=== PATIENT | male | born 1980 | race Caucasian/White ===

== ENCOUNTER 2023-03-18 17:43 | Inpatient (IN) ==
--- NOTE | 2023-03-18 18:26 | Emergency Department Note ---
ED Provider Note History of Present Illness Chief Complaint: Abdominal Pain Stated Complaint: ABDOMINAL PAIN,WEAK Time Seen by Provider: 03/18/23 17:50 Source: patient Mode of arrival: ambulatory Limitations: no limitations This patient is a 43-year-old male who presents to the emergency department for evaluation of lower abdominal discomfort x3 days. Patient reports that he has a pain/discomfort across his lower abdomen which has been constant over the past 3 days. He states it feels like gas, but having a bowel movement or passing gas does not relieve the pain. He has tried taking Gas-X without relief. He feels like it is slightly difficult to urinate and he has been having decreased bowel movements. He denies any nausea/vomiting, diarrhea, blood in his stools or fever/chills. He denies any history of similar symptoms. He was seen at urgent care and referred here for further evaluation. Home Medications Medication Instructions Recorded Confirmed Type buspirone 5 mg tablet 5 - 10 mg PO DAILY PRN Anxiety 05/04/20 03/18/23 History acetaminophen 325 mg tablet 1,300 mg PO TID PRN Pain 03/18/23 03/18/23 History (Tylenol) calcium carbonate 500 mg calcium 500 mg PO TID PRN Gi Upset 03/18/23 03/18/23 History (1,250 mg) chewable tablet gabapentin 300 mg capsule 300 mg PO TID 03/18/23 03/18/23 History ibuprofen 200 mg tablet (Advil) 800 mg PO DAILY PRN Pain 03/18/23 03/18/23 History Allergies Allergy/AdvReac Type Severity Reaction Status Date / Time No Known Allergies Allergy Unknown NONE Verified 03/18/23 22:05 Past Med/Surg History Medical History (Updated 03/18/23 @ 23:21 by Destiny Larry PA-C) Alcoholism /alcohol abuse will be planning rehab after colonoscopy Anxiety Hemorrhoids Surgical History H/O removal of neck cyst Hx of reduction of closed fracture right Family History Other Cancer Social History Smoking Status: Current every day smoker Tobacco Type: Cigarettes Cigarettes Per Day: 2ppd; Second Hand Exposure: No; Do You Dip or Chew Tobacco: No; Hx Alcohol Use: Yes Alcohol type: beer Hx Substance Use: Yes Preferred Language: Iranian Communication Ability: Effective Test Case Developer Required: No Beliefs That Will Affect Care: None marital status: Single Current Living Situation: Other current occupational status: employed Feels Safe at Home: Yes Physical Exam Vital Signs Vital Signs - 24 hr 03/18/23 17:45 03/18/23 18:41 03/18/23 18:41 Temperature 36.8 C Temperature Source Oral Pulse Rate 105 H Pulse Rate [Right Finger] 95 H Pulse Rhythm Regular Respiratory Rate 20 20 Respiratory Effort / Characteristics Non-Labored Spontaneous Non-Labored Respiratory Depth Normal Normal Respiratory Pattern Blood Pressure 132/93 Blood Pressure [Right Arm] 140/86 Blood Pressure Mean 106 Blood Pressure Mean [Right Arm] 104 Pulse Oximetry 97 98 98 Oxygen Delivery Method Room Air Room Air Room Air Sepsis Recent Fever Within 48 Hours No Sepsis New/Unexplained Change in Mental Status No Sepsis Action Taken by Nursing No Action Required 03/18/23 19:54 03/18/23 21:18 Temperature Temperature Source Pulse Rate Pulse Rate [Right Finger] 92 H 96 H Pulse Rhythm Respiratory Rate 18 18 Respiratory Effort / Characteristics Non-Labored Spontaneous Non-Labored Spontaneous Respiratory Depth Normal Normal Respiratory Pattern Regular Blood Pressure Blood Pressure [Right Arm] 143/86 H 129/81 Blood Pressure Mean Blood Pressure Mean [Right Arm] 105 97 Pulse Oximetry 98 96 Oxygen Delivery Method Room Air Room Air Sepsis Recent Fever Within 48 Hours Sepsis New/Unexplained Change in Mental Status Sepsis Action Taken by Nursing VITALS: Vitals are noted on the nurse's note and reviewed by myself. GENERAL: This is a 43-year-old male, in no acute distress, well-developed well- nourished. SKIN: The skin was without rashes. EYES: Pupils equal round and reactive to light and accommodation. MOUTH: Mucous membranes moist. HEART: Regular rate and rhythm without murmurs gallops or rubs. LUNGS: Clear to auscultation bilaterally without wheezes, rales or rhonchi. ABDOMEN: Positive bowel sounds x 4. Umbilical hernia is noted, nonreducible but nontender. No skin changes. There is tenderness with guarding in the left low er quadrant. NEURO: Patient was alert and oriented to person place and time. Course Consultations Consultation #1: Gennaro Knight PA-C - general surgery Consultation #2: Dr. Aragon - [facility] hospitalist Administered Medications Discontinued Medications Piperacillin Sod/Tazobactam Sod (Zosyn) 4.5 gm in 120 mls @ 240 mls/hr IV NOW ONE Stop: 03/18/23 20:49 Last Infusion: 03/18/23 21:43 Dose: 0 mls/hr Documented By: Admin: 03/18/23 21:13 Dose: 240 mls/hr Documented By: BS Sodium Chloride (Nss 1000ml) 1,000 mls @ 999 mls/hr IV .Q1H1M ONE Stop: 03/18/23 21:20 Last Infusion: 03/18/23 22:23 Dose: 0 mls/hr Documented By: Admin: 03/18/23 21:14 Dose: 999 mls/hr Documented By: MARQUEZ Ioversol (Optiray 320 100ml) 80 ml IV ONCE ONE Stop: 03/18/23 20:02 Last Admin: 03/18/23 20:02 Dose: 80 ml Documented By: DAVID Morphine Sulfate (Morphine Sulfate 4 Mg/Ml 1 Ml Carp\Vial) 4 mg IV NOW STA Stop: 03/18/23 21:04 Last Admin: 03/18/23 21:14 Dose: 4 mg Documented By: MARQUEZ Ondansetron HCl (Ondansetron Inj 2 Mg/Ml 2 Ml Vial) 4 mg IV NOW STA Stop: 03/18/23 21:04 Last Admin: 03/18/23 21:14 Dose: 4 mg Documented By: MARQUEZ Medical Decision Making Differential Diagnosis Appendicitis, testicular torsion, infections, diverticulitis, UTI, obstruction, mesenteric ischemia, aortic pathology, inflammatory bowel disease, renal colic, PUD, pancreatitis, biliary pathology, hernia, volvulus, constipation, as well as other pathologies. Home Medications was personally reviewed by me Laboratory Data Attestation: I reviewed the patient's lab results. 03/18/23 18:43 03/18/23 18:43 Lab Results 03/18/23 03/18/23 03/18/23 Range/Units 18:43 18:43 21:00 WBC 16.59 H (4.8-10.8) K/ul RBC 4.89 (4.70-6.10) M/uL Hgb 14.8 (14.0-18.0) g/dl Hct 42.5 (42.0-52.0) % MCV 86.9 (80.0-100.0) fL MCH 30.3 (25.0-34.0) pg MCHC 34.8 (32.0-36.0) g/dL RDW Std Deviation 41.2 (36.4-46.3) fL RDW Coeff of Krystyna 13.1 (11.5-14.5) % Plt Count 255 (130-400) K/uL MPV 10.1 (9.4-12.4) fL Immature Gran % (Auto) 0.5 % Neut % (Auto) 81.0 % Lymph % (Auto) 9.9 % [place] % (Auto) 8.0 % Eos % (Auto) 0.3 % Baso % (Auto) 0.3 % Neut # (Auto) 13.43 H (1.40-6.50) K/uL Lymph # (Auto) 1.64 (1.2-3.4) K/uL [place] # (Auto) 1.33 H (0.11-0.59) K/uL Eos # (Auto) 0.05 (0-0.50) K/uL Baso # (Auto) 0.05 (0-0.2) K/uL Immature Gran # (Auto) 0.09 (0.01-0.20) K/uL Sodium 136 (136-145) mmol/L Potassium 4.1 (3.5-5.1) mmol/L Chloride 101 (98-107) mmol/L Carbon Dioxide 27 (21-32) mmol/L Anion Gap 8 (3-11) BUN 9 (6-23) mg/dl Creatinine 0.77 (0.6-1.4) mg/dl Est Cr Clr Drug Dosing 137.6 ml/min Est GFR ( Amer) 127.0 ml/min Est GFR (Non-Af Amer) 109.6 ml/min BUN/Creatinine Ratio 11.7 (10-20) Glucose 97 (70-99(Fasting)) mg/dl Calcium 8.6 (8.6-10.3) mg/dl Total Bilirubin 0.5 (0.2-1.0) mg/dl AST 14 (13-39) U/L ALT 17 (7-52) U/L Alkaline Phosphatase 70 (34-104) U/L Total Protein 6.9 (6.0-8.3) gm/dl Albumin 3.8 (3.4-5.0) gm/dl Globulin 3.1 (2.5-4.0) gm/dl Albumin/Globulin Ratio 1.2 (0.9-2) Lipase 13 (11-82) U/L Urine Color Yellow Urine Appearance Clear (Clear) Urine pH 6.0 (4.5-7.5) Ur Specific [place] > 1.045 H (1.000-1.030) Urine Protein Trace H (Negative) Urine Glucose (UA) Negative (Negative) Urine Ketones 3+ H (Negative) Urine Blood Negative (Negative) Urine Nitrite Negative (Negative) Urine Bilirubin Negative (Negative) Urine Urobilinogen Negative (Negative) Ur Leukocyte Esterase Negative (Negative) Urine WBC (Auto) 0 (0-5) /hpf Urine RBC (Auto) 0-4 (0-4) /hpf U Hyaline Cast (Auto) 0 (0-5) /lpf U Epithel Cells (Auto) 5-10 H (0-5) /lpf Urine Bacteria (Auto) Negative (Negative) SARS-CoV-2, RNA, NAAT (NEGATIVE) 03/18/23 Range/Units Unknown WBC (4.8-10.8) K/ul RBC (4.70-6.10) M/uL Hgb (14.0-18.0) g/dl Hct (42.0-52.0) % MCV (80.0-100.0) fL MCH (25.0-34.0) pg MCHC (32.0-36.0) g/dL RDW Std Deviation (36.4-46.3) fL RDW Coeff of Krystyna (11.5-14.5) % Plt Count (130-400) K/uL MPV (9.4-12.4) fL Immature Gran % (Auto) % Neut % (Auto) % Lymph % (Auto) % [place] % (Auto) % Eos % (Auto) % Baso % (Auto) % Neut # (Auto) (1.40-6.50) K/uL Lymph # (Auto) (1.2-3.4) K/uL [place] # (Auto) (0.11-0.59) K/uL Eos # (Auto) (0-0.50) K/uL Baso # (Auto) (0-0.2) K/uL Immature Gran # (Auto) (0.01-0.20) K/uL Sodium (136-145) mmol/L Potassium (3.5-5.1) mmol/L Chloride (98-107) mmol/L Carbon Dioxide (21-32) mmol/L Anion Gap (3-11) BUN (6-23) mg/dl Creatinine (0.6-1.4) mg/dl Est Cr Clr Drug Dosing ml/min Est GFR ( Amer) ml/min Est GFR (Non-Af Amer) ml/min BUN/Creatinine Ratio (10-20) Glucose (70-99(Fasting)) mg/dl Calcium (8.6-10.3) mg/dl Total Bilirubin (0.2-1.0) mg/dl AST (13-39) U/L ALT (7-52) U/L Alkaline Phosphatase (34-104) U/L Total Protein (6.0-8.3) gm/dl Albumin (3.4-5.0) gm/dl Globulin (2.5-4.0) gm/dl Albumin/Globulin Ratio (0.9-2) Lipase (11-82) U/L Urine Color Urine Appearance (Clear) Urine pH (4.5-7.5) Ur Specific [place] (1.000-1.030) Urine Protein (Negative) Urine Glucose (UA) (Negative) Urine Ketones (Negative) Urine Blood (Negative) Urine Nitrite (Negative) Urine Bilirubin (Negative) Urine Urobilinogen (Negative) Ur Leukocyte Esterase (Negative) Urine WBC (Auto) (0-5) /hpf Urine RBC (Auto) (0-4) /hpf U Hyaline Cast (Auto) (0-5) /lpf U Epithel Cells (Auto) (0-5) /lpf Urine Bacteria (Auto) (Negative) SARS-CoV-2, RNA, NAAT NEGATIVE (NEGATIVE) Imaging Data Attestation: I personally reviewed and interpreted this imaging study as follows: Radiologist's Impression: Abdomen/Pelvis CT 03/18/23 18:06 Exam(s): CT ABDOMEN + PELVIS With Contrast EXAM: CT Abdomen and Pelvis With Intravenous Contrast CLINICAL HISTORY: Reason for exam: lower abdominal pain. TECHNIQUE: Axial computed tomography images of the abdomen and pelvis with intravenous contrast. CTDI is 23.79 mGy and DLP is 1179.99 mGy-cm. Automated exposure control was utilized for the study. A dose lowering technique was utilized adhering to the principles of ALARA. CONTRAST: IV contrast COMPARISON: No relevant prior studies available. FINDINGS: Lung bases: Unremarkable. No mass. No consolidation. ABDOMEN: Liver: Unremarkable. No mass. Gallbladder and bile ducts: Unremarkable. No calcified stones. No ductal dilation. Pancreas: Unremarkable. No mass. No ductal dilation. Spleen: Unremarkable. No splenomegaly. Adrenals: Unremarkable. No mass. Kidneys and ureters: Unremarkable. No solid mass. No hydronephrosis. Stomach and bowel: Sigmoid diverticulitis there is a 1.9 x 1 cm area of hypodensity in the left lower abdomen adjacent to the above-mentioned inflammatory changes consistent with a small diverticular abscess. No obstruction. PELVIS: Appendix: No findings to suggest acute appendicitis. Bladder: Unremarkable. No mass. Reproductive: Unremarkable as visualized. ABDOMEN and PELVIS: Intraperitoneal space: Unremarkable. No free air. No significant fluid collection. Bones/joints: No acute fracture. No dislocation. Soft tissues: Unremarkable. Vasculature: Unremarkable. No abdominal aortic aneurysm. Lymph nodes: Unremarkable. No enlarged lymph nodes. IMPRESSION: Sigmoid diverticulitis with a 1.9 cm diverticular abscess. Electronically signed by: Aniket Bender MD 03/18/23 20:17 PM MDM Narrative Continuous air sampling and monitoring: Order was placed for continuous air sampling and monitoring. Patient was placed on the air sampling and monitoring. Patient was noted to be in normal sinus rhythm at an initial rate of 90 bpm. The patient is a 43-year-old male who presents today complaining of lower abdominal pain. Patient has tenderness with guarding in the left lower quadrant. The above work-up was performed. Labs revealed a leukocytosis of 16,000. Kidney function within normal limits. There were no concerning electrolyte abnormalities noted. CT scan of the abdomen/pelvis was performed and reviewed by radiology as above. Patient was found to have diverticulitis with associated abscess. He was given Zosyn and IV fluids. He received morphine for pain and Zofran for nausea. This was discussed with general surgery who evaluated the patient. They recommended admission to medicine. [facility] the patient for further care. Impression Diverticulitis of intestine with abscess Discharge Plan Visit Data Chief Complaint: Abdominal Pain Stated Complaint: ABDOMINAL PAIN,WEAK ED Provider: Christian Ricci ED Midlevel Provider: Destiny Larry Discharge Problem: Diverticulitis of intestine with abscess Forms Stand Alone Forms: [employer] [facility] [employer] Prescriptions Prescriptions: No Action buspirone 5 mg tablet 5 - 10 mg PO DAILY PRN (Reason: Anxiety) gabapentin 300 mg capsule 300 mg PO TID acetaminophen [Tylenol] 325 mg Tablet 1,300 mg PO TID PRN (Reason: Pain) ibuprofen [Advil] 200 mg Tablet 800 mg PO DAILY PRN (Reason: Pain) calcium carbonate [Tums 500] 500 mg calcium (1,250 mg) Tablet,Chewable 500 mg PO TID PRN (Reason: Gi Upset) Referrals Referrals: Kojo Dubois PA-C [Primary Care Provider] -
[2023-03-18 18:57] LABS: Basophils # (auto) 0.05 K/uL (0-0.2); Basophils % (auto) 0.3 %; Eosinophils # (auto) 0.05 K/uL (0-0.50); Eosinophils % (auto) 0.3 %; Hematocrit (blood only) 42.5 % (42.0-52.0); Hemoglobin 14.8 g/dl (14.0-18.0); Immature Granulocytes # (auto) 0.09 K/uL (0.01-0.20); Immature Granulocytes % (auto) 0.5 %; Lymphocytes # (auto) 1.64 K/uL (1.2-3.4); Lymphocytes % (auto) 9.9 %; Mean Corpuscular Hemoglobin 30.3 pg (25.0-34.0); Mean Corpuscular Hgb Conc 34.8 g/dL (32.0-36.0); Mean Corpuscular Volume 86.9 fL (80.0-100.0); Mean Platelet Volume 10.1 fL (9.4-12.4); Monocytes # (auto) 1.33 K/uL (0.11-0.59); Neutrophils # (auto) 13.43 K/uL (1.40-6.50); Platelet Count 255 K/uL (130-400); RDW Coefficient of Variation 13.1 % (11.5-14.5); RDW Standard Deviation 41.2 fL (36.4-46.3); Red Blood Count 4.89 M/uL (4.70-6.10); White Blood Count 16.59 K/ul (4.8-10.8)
[2023-03-18 19:18] LABS: Albumin Globulin Ratio 1.2 (0.9-2); Albumin Level 3.8 gm/dl (3.4-5.0); BUN Creatinine Ratio 11.7 (10-20); Bilirubin,Total 0.5 mg/dl (0.2-1.0); Calcium 8.6 mg/dl (8.6-10.3); Creatinine Clr Calc Pharmacy 137.6 ml/min; Est GFR (Non-African American) 109.6 ml/min; Globulin 3.1 gm/dl (2.5-4.0); Potassium 4.1 mmol/L (3.5-5.1); Total Protein 6.9 gm/dl (6.0-8.3)
[2023-03-18] MEDS ORDERED: OPTIRAY 320 100ml IV ONE (20:01)
--- NOTE | 2023-03-18 20:18 | CT Scan Report ---
Exam(s): CT ABDOMEN + PELVIS With Contrast EXAM: CT Abdomen and Pelvis With Intravenous Contrast CLINICAL HISTORY: Reason for exam: lower abdominal pain. TECHNIQUE: Axial computed tomography images of the abdomen and pelvis with intravenous contrast. CTDI is 23.79 mGy and DLP is 1179.99 mGy-cm. Automated exposure control was utilized for the study. A dose lowering technique was utilized adhering to the principles of ALARA. CONTRAST: IV contrast COMPARISON: No relevant prior studies available. FINDINGS: Lung bases: Unremarkable. No mass. No consolidation. ABDOMEN: Liver: Unremarkable. No mass. Gallbladder and bile ducts: Unremarkable. No calcified stones. No ductal dilation. Pancreas: Unremarkable. No mass. No ductal dilation. Spleen: Unremarkable. No splenomegaly. Adrenals: Unremarkable. No mass. Kidneys and ureters: Unremarkable. No solid mass. No hydronephrosis. Stomach and bowel: Sigmoid diverticulitis there is a 1.9 x 1 cm area of hypodensity in the left lower abdomen adjacent to the above-mentioned inflammatory changes consistent with a small diverticular abscess. No obstruction. PELVIS: Appendix: No findings to suggest acute appendicitis. Bladder: Unremarkable. No mass. Reproductive: Unremarkable as visualized. ABDOMEN and PELVIS: Intraperitoneal space: Unremarkable. No free air. No significant fluid collection. Bones/joints: No acute fracture. No dislocation. Soft tissues: Unremarkable. Vasculature: Unremarkable. No abdominal aortic aneurysm. Lymph nodes: Unremarkable. No enlarged lymph nodes. IMPRESSION: Sigmoid diverticulitis with a 1.9 cm diverticular abscess. Electronically signed by: Aniket Bender MD 03/18/23 20:17 PM
[2023-03-18] MEDS ORDERED: PIPERACILLIN/TAZOBACTAM 4.5 GM/120 ML BAG IV ONE (20:20)
[2023-03-18] MEDS ORDERED: SODIUM CHLORIDE 0.9% 1000ML 1,000 ML IV ONE (20:20)
[2023-03-18] MEDS ORDERED: MoRPHine SULFATE 4 MG/ML 1 ML CARP\\VIAL IV STA (21:03)
[2023-03-18] MEDS ORDERED: ONDANSETRON INJ 2 MG/ML 2 ML VIAL IV STA (21:03)
--- NOTE | 2023-03-18 21:34 | Surgery Consultation ---
Date of Consultation March 18, 2023 Assessment & Plan (1) Diverticulitis: I discussed with the treating provider in the emergency department and the patient is going to be admitted on the hospitalist service. We recommend proceeding as follows: Provide analgesics Provide antiemetics Implement n.p.o. status Provide IV fluid for hydration Initiate broad-spectrum antibiotics. The patient has received his first dose of Zosyn in the emergency department Follow serial labs I discussed in detail with the patient the disease process. I discussed with him the rationale for conservative management as described above to which he is agreeable. I did discuss with the patient that our goal will be to avoid emergency surgery as this would likely necessitate a colostomy. I did discuss with the patient that consideration will be given to advancing his diet beginning with clear liquids when he has improvement of his abdominal exam, laboratory studies, and return of normal bowel function. I did discuss with the patient that it is possible that he could clinically deteriorate necessitating an emergency operation. If the patient does show signs of clinical deterioration consideration can be given to repeating a CT scan of his abdomen pelvis. As noted the patient does have a small diverticular abscess but I feel this is too small to 10 percutaneous drainage at this time. Additional recommendations be forthcoming based on his clinical course as unfolds Additional plan as directed by the primary admitting service History of Present Illness Reason for Consultation: Diverticulitis History of Present Illness This is a 43-year-old male who presented to [facility] emergency department secondary to 2 days of lower abdominal pain. The patient notes that the pain is greatest in the left lower quadrant but does cross his lower abdomen in a bandlike fashion. He notes that the pain comes and goes without palliative or provocative factors. He denies any nausea or vomiting. He is noted to be afebrile but he did admit to some sweats and chills. He notes that his last bowel movement was today and was normal. He specifically denies any bright blood per rectum, hematochezia, or melena. Patient says he has never had diverticulitis in the past and has had no prior abdominal surgeries. The patient's records were reviewed and the patient did have a colonoscopy in April 2020. On this study the patient was noted to have one 7 mm polyp in the ascending colon which was removed. The pathology of this polyp was consistent with a tubular adenoma and was negative for high-grade dysplasia. Since arrival to the hospital the patient has had labs and imaging which I independently reviewed. A CT scan of the abdomen and pelvis showed the patient had sigmoid diverticulitis with a 1.9 x 1 cm area of hypodensity in the left lower quadrant with inflammatory changes which were felt to be consistent with a small diverticular abscess. There is no evidence of bowel obstruction. No intraperitoneal free air was noted on this study. Labs included a CBC her white blood cell count was 16.5. Hemoglobin and hematocrit as well as the platelet count were all within normal range. Chemistry profile showed sodium, potassium, BUN, and creatinine were normal. There is no elevation of patient's LFTs or lipase. At the time of my interview he was resting comfortably in bed he was in no distress. Allergies Allergy/AdvReac Type Severity Reaction Status Date / Time No Known Allergies Allergy Unknown NONE Verified 03/18/23 22:05 Home Medications Medication Instructions Recorded Confirmed Type buspirone 5 mg tablet 5 - 10 mg PO DAILY PRN Anxiety 05/04/20 03/18/23 History acetaminophen 325 mg tablet 1,300 mg PO TID PRN Pain 03/18/23 03/18/23 History (Tylenol) calcium carbonate 500 mg calcium 500 mg PO TID PRN Gi Upset 03/18/23 03/18/23 History (1,250 mg) chewable tablet gabapentin 300 mg capsule 300 mg PO TID 03/18/23 03/18/23 History ibuprofen 200 mg tablet (Advil) 800 mg PO DAILY PRN Pain 03/18/23 03/18/23 History Patient History Medical History (Updated 03/18/23 @ 23:21 by Destiny Larry PA-C) Alcoholism /alcohol abuse will be planning rehab after colonoscopy Anxiety Hemorrhoids Surgical History H/O removal of neck cyst Hx of reduction of closed fracture right Family History Other Cancer Social History Smoking Status: Current every day smoker Tobacco Type: Cigarettes Cigarettes Per Day: 1 1/2 packs; Second Hand Exposure: Yes; Do You Dip or Chew Tobacco: No; Tobacco Cessation Education Requested by Patient: No Hx Alcohol Use: Yes Alcohol type: beer Hx Substance Use: Yes Last Used Substance: Hours (ago) Last Used Substance Other:: Pt states he smoked weed on his way here Preferred Language: Stateless Communication Ability: 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 Beliefs That Will Affect Care: None marital status: Single Current Living Situation: Other Current Living Situation Comment: Currently shares a house with a friend current occupational status: employed Other Information That Helps Us Care for You: No Feels Safe at Home: Yes Safety Concerns: Feels Safe At This Time Assistive Devices: None Review of Systems Constitutional: + fever, + chills and + sweats Ear, Nose, Mouth, Throat: no hearing loss Respiratory: no cough and no dyspnea Cardiovascular: no chest pain Gastrointestinal: as per Subjective / HPI Genitourinary: no dysuria Musculoskeletal: no back pain Integumentary: no rash Neurologic: no localized weakness Physical Exam Constitutional: WD/WN, vitals as above Eyes: no conjunctival abnormality ENMT: Ears: no hearing impairment and no external ear abnormality Mouth: no oropharynx abnormality Neck: trachea midline Respiratory: normal respiratory effort, lungs clear to auscultation Cardiovascular: Rate/Rhythm: regular rate and regular rhythm Vessels: dorsalis pedis pulses present and radial pulses present Gastrointestinal (Abdomen): Abdomen is soft and nonrigid with mild distention. Bowel sounds are present but hypoactive. There is no rebound tenderness or guarding but patient had marked tenderness in the left lower quadrant and to a lesser degree the right lower quadrant. Musculoskeletal: No calf tenderness or lower extremity edema Skin: no rashes Neurologic: moves all extremities Psychiatric: A+Ox3, euthymic affect Results & Data Vital Signs (Past 12 Hours) Vital Signs Temp Pulse Pulse Resp BP BP Pulse Ox 03/18/23 21:18 96 H 18 129/81 96 03/18/23 19:54 92 H 18 143/86 H 98 03/18/23 18:41 98 03/18/23 18:41 95 H 20 140/86 98 03/18/23 17:45 36.8 C 105 H 20 132/93 97 O2 Del Method 03/18/23 21:18 Room Air 03/18/23 19:54 Room Air 03/18/23 18:41 Room Air 03/18/23 18:41 Room Air 03/18/23 17:45 Room Air PG Care Time/CCT Total # of Minutes Spent Total Time Spent with Patient: Total time spent is greater than 50% in coordination of care (as documented) at patient's floor/unit and/or counseling patient: Coding Level of Care Code 34675 IN/OBS CONSULT LVL 5,80M Diagnoses Diverticulitis K57.92
[2023-03-18 22:09] LABS: Appearance Urine Clear (Clear); Bacteria Urine Automated Negative (Negative); Bilirubin Urine Negative (Negative); Blood Urine Negative (Negative); Cast Urine Automated 0 /lpf (0-5); Color Urine Yellow; Glucose Urine UA Negative (Negative); Ketones Urine 3+ (Negative); Leukocyte Esterase Urine Negative (Negative); Nitrite Urine Negative (Negative); Protein Urine Trace (Negative); RBC Urine Automated 0-4 /hpf (0-4); Specific Gravity Urine > 1.045 (1.000-1.030); Urobilinogen Urine Negative (Negative); WBC Urine Automated 0 /hpf (0-5)
[2023-03-18] MEDS ORDERED: MoRPHine SULFATE 2 MG/ML CARP IV STA (22:37)
[2023-03-19] MEDS ORDERED: ONDANSETRON INJ 2 MG/ML 2 ML VIAL IV PRN (00:02)
[2023-03-19] MEDS ORDERED: ACETAMINOPHEN 325 MG TAB PO PRN (00:02)
[2023-03-19] MEDS: D5W AND NSS 1,000 ML IV SCH ×4 (00:41→21:19)
[2023-03-19] MEDS: NICOTINE 21 MG/24 HR TDSY TD SCH ×2 (01:17→08:07)
[2023-03-19] MEDS: PIPERACILLIN/TAZOBACTAM 4.5 GM in DEXTROSE 5% 100 ML IV SCH ×3 (01:17→18:21)
--- NOTE | 2023-03-19 01:32 | History and Physical Report ---
DATE OF ADMISSION: 03/18/2023. CHIEF COMPLAINT: Abdominal pain. HISTORY OF PRESENT ILLNESS: This is a 43-year-old male past medical history significant for genital warts, history of depression with anxiety, tobacco use disorder. Currently, he states he is only taking gabapentin and once in a while takes buspirone and he is also smoking 1 pack a day. Comes because of abdominal pain since Wednesday, left lower quadrant abdominal pain, associated with some sickness in the stomach. Denies any nausea or vomiting. Denies any fever. Normal bowel and bladder movements. Denies any chest pain. Has smoker's cough. He gets short of breath on exertion. Denies any headache. No blurred visions, no earache, no runny nose, no sore throat. Currently, resting comfortably and hemodynamically stable. ALLERGIES: No known drug allergies. PAST MEDICAL HISTORY: As mentioned above. PAST SURGICAL HISTORY: Lumbosacral spine injection. MEDICATIONS: Currently taking only gabapentin 300 mg p.o. b.i.d., buspirone 5 mg p.o. b.i.d. taking as needed. FAMILY HISTORY: Significant for mother had breast cancer; paternal grandmother had cancer. SOCIAL HISTORY: Single, smokes about a pack a day. Smokes marijuana daily. Denies any alcohol currently. REVIEW OF SYSTEMS: As per HPI. Rest of the review of systems is negative. PHYSICAL EXAMINATION: GENERAL: The patient is of moderate build, not in acute distress. VITAL SIGNS: Temperature 36.8, pulse 96, respiratory rate 18, blood pressure 129/81, oxygen 96% on room air. HEENT: Pupils equal, round and reactive to light. Oral mucosa moist. NECK: No JVD, no neck masses. CARDIOVASCULAR: S1 and S2 heard. Regular rate and rhythm. No murmur, no gallop. RESPIRATORY SYSTEM: Normal AP diameter. No accessory muscle use. No wheezing or crackles. ABDOMEN: Soft, bowel sounds present. Tenderness in left lower quadrant with guarding, no distention. CENTRAL NERVOUS SYSTEM: Cranial nerves II-XII grossly intact, nonfocal. EXTREMITIES: No edema, no erythema. LABORATORY DATA: WBC 16.5, hemoglobin 14.8, hematocrit 42.5, platelets 255. Sodium 136, potassium 4.1, chloride 101, bicarbonate 27, BUN 9, creatinine 0.7, serum glucose 97, calcium 8.6, total bilirubin 0.5, AST 14, ALT 17, alkaline phosphatase 70, lipase 13. Urinalysis negative. SARS-CoV-2 rapid test negative. IMAGING DATA: CT abdomen and pelvis with IV contrast shows sigmoid diverticulitis with 1.9 cm diverticular abscess. ASSESSMENT AND PLAN: This is a 43-year-old male who presents with abdominal pain and found to have sigmoid diverticulitis with diverticular abscess. 1. Sigmoid diverticulitis with 1.9 cm diverticular abscess. Will keep on n.p.o., IV fluids, IV antiemetics, IV Zosyn. Surgery consulted. Monitor in the medical floor. 2. History of anxiety and depression: Currently taking only buspirone as needed. 3. Tobacco abuse: Needs counseling. Placed on nicotine patch. 4. Deep venous thrombosis prophylaxis: Lovenox. DISPOSITION: Closely monitor in the medical floor. Expect to discharge home and follow with family doctor. Job ID: [id number] [facility]
[2023-03-19] MEDS: MoRPHine SULFATE 4 MG/ML 1 ML CARP\\VIAL IV PRN ×5 (04:35→23:08)
[2023-03-19 07:37] LABS: Basophils # (auto) 0.03 K/uL (0-0.2); Basophils % (auto) 0.2 %; Eosinophils # (auto) 0.11 K/uL (0-0.50); Eosinophils % (auto) 0.9 %; Hematocrit (blood only) 40.1 % (42.0-52.0); Hemoglobin 13.4 g/dl (14.0-18.0); Immature Granulocytes # (auto) 0.06 K/uL (0.01-0.20); Immature Granulocytes % (auto) 0.5 %; Lymphocytes # (auto) 1.93 K/uL (1.2-3.4); Mean Corpuscular Hemoglobin 29.3 pg (25.0-34.0); Mean Corpuscular Hgb Conc 33.4 g/dL (32.0-36.0); Mean Corpuscular Volume 87.6 fL (80.0-100.0); Monocytes % (auto) 8.6 %; Neutrophils # (auto) 9.62 K/uL (1.40-6.50); Neutrophils % (auto) 74.8 %; Platelet Count 237 K/uL (130-400); RDW Coefficient of Variation 13.2 % (11.5-14.5); RDW Standard Deviation 42.6 fL (36.4-46.3); Red Blood Count 4.58 M/uL (4.70-6.10); White Blood Count 12.85 K/ul (4.8-10.8)
[2023-03-19 07:52] LABS: BUN Creatinine Ratio 11.9 (10-20); Calcium 8.5 mg/dl (8.6-10.3); Creatinine Clr Calc Pharmacy 157.7 ml/min; Est GFR (African American) 134.5 ml/min; Potassium 3.6 mmol/L (3.5-5.1)
[2023-03-19] MEDS: GABAPENTIN 300 MG CAP PO SCH ×3 (08:07→20:00)
[2023-03-19] MEDS ORDERED: ENOXAPARIN INJ 40 MG/0.4 ML SYR SQ SCH (09:00)
[2023-03-19] MEDS ORDERED: NICOTINE 21 MG/24 HR TDSY TD SCH (09:00)
--- NOTE | 2023-03-19 13:54 | Surgery Progress Note ---
Date of Service March 19, 2023 Assessment & Plan (1) Diverticulitis of intestine with abscess: Plan: Already seeing some clinical improvement. I would stay on just ice chips until tomorrow. If doing better he could be advanced to clear liquids. Dr. Quezada covering for the weekend if any problems or questions Admission and Anticipated Discharge Date Admission Date: March 18, 2023 Subjective Patient seen. Still having some left lower quadrant discomfort but improved since admission. No new complaints. Physical Exam Physical Exam: Alert. No acute distress Abdomen soft suprapubic and left lower quadrant tenderness. No peritonitis Results & Data Vital Signs (Past 12 Hours) Vital Signs Temp Pulse Resp BP Pulse Ox O2 Del Method 03/19/23 09:00 Room Air 03/19/23 08:01 36.9 C 87 18 117/68 99 Room Air PG Care Time/CCT Total # of Minutes Spent Total Time Spent with Patient: Total time spent is greater than 50% in coordination of care (as documented) at patient's floor/unit and/or counseling patient: Coding Level of Care Code 36724 SUB INP/OBS CARE 2/35MIN Diagnoses Diverticulitis of intestine with abscess K57.20 Diverticulitis bleeding: without bleeding Diverticulitis site: large intestine (1) Diverticulitis of intestine with abscess Diverticulitis bleeding: without bleeding Diverticulitis site: large intestine Qualified Code(s): K57.20 - Diverticulitis of large intestine with perforation and abscess without bleeding
--- NOTE | 2023-03-19 14:35 | Hospitalist Progress Note ---
Date of Service March 19, 2023 Assessment & Plan (1) Diverticulitis of intestine with abscess: (2) History of alcohol use: (3) Anxiety: (4) Tobacco use: Plan This is a 43-year-old malewith past medical history significant of depression with anxiety, tobacco use disorder who presented with acute diverticulitis. Acute diverticulitis Afebrile, hemodynamically stable CT abd/pelvis with sigmoid diverticulitis with a 1.9 cm diverticular abscess Per surgery, continue conservative mgmt. Some improvement already. Cont. ice chips until tomorrow and if improving, can be advanced to clear liquids Continue IV fluids, IV Zosyn, pain control Anxiety Buspar PRN Tobacco use disorder Smokes 1 ppd. Using nicotine patch. Cessation counseling History of alcohol use No longer drinking DVT Ppx: SQ lovenox Code status: FULL PCP: DESIRAE Dubois Dispo: Admitted to med/surg Patient seen in collaboration with Dr. Arnold. Please see addendum. I spent a total of 50 minutes coordinating, documenting, and providing care for this patient excluding time spent in the performance of separately billed services. Admission and Anticipated Discharge Date Admission Date: March 18, 2023 Supervising Physician Co-Signing Physician Notes Patient seen and examined at bedside. Discussed with her provider. Reports improvement in the abdominal pain. No nausea or vomiting. Please will schedule IV Tylenol for pain control, morphine as needed. N.p.o. for now with ice chips. Subjective Patient seen and examined in 379-2 in follow-up for admission for diverticulitis. Still having left lower abdominal pain but is improved with medications since admission. Denies any fever, chills, nausea, vomiting, melena or hematochezia. No history of diverticulitis that he knows of. No fever, no headache, chest pain or shortness of breath, dysuria. Review of Systems Review of Systems: At least ten systems reviewed and negative except as noted in the HPI. Physical Exam Physical Exam: Gen: WD/WN, NAD, resting in bed, A&Ox3, cooperative HEENT: Normocephalic, atraumatic, conjunctivae moist, sclerae anicteric, mucous membranes moist Lung: Clear to Auscultation bilaterally, no wheezes/rales/rhonchi Heart: Regular rate, regular rhythm, no murmurs, rubs, or gallops Abdomen: Soft, NT, ND +BS x 4 Extremities: no edema Skin: Warm, no rash Results & Data Results & Data Vital Signs (Past 12 Hours) Vital Signs Temp Pulse Resp BP Pulse Ox O2 Del Method 03/19/23 09:00 Room Air 03/19/23 08:01 36.9 C 87 18 117/68 99 Room Air Laboratory Results Short CBC 03/18/23 03/19/23 Range/Units 18:43 06:58 WBC 16.59 H 12.85 H (4.8-10.8) K/ul Hgb 14.8 13.4 L (14.0-18.0) g/dl Hct 42.5 40.1 L (42.0-52.0) % Plt Count 255 237 (130-400) K/uL BMP 03/18/23 03/19/23 18:43 06:58 Sodium 136 136 Potassium 4.1 3.6 Chloride 101 104 Carbon Dioxide 27 25 BUN 9 8 Creatinine 0.77 0.67 Glucose 97 104 H Calcium 8.6 8.5 L Liver Function 03/18/23 Range/Units 18:43 Total Bilirubin 0.5 (0.2-1.0) mg/dl AST 14 (13-39) U/L ALT 17 (7-52) U/L Alkaline Phosphatase 70 (34-104) U/L Albumin 3.8 (3.4-5.0) gm/dl Urine 03/18/23 Range/Units 21:00 Urine Color Yellow Urine Appearance Clear (Clear) Urine pH 6.0 (4.5-7.5) Ur Specific [place] > 1.045 H (1.000-1.030) Urine Protein Trace H (Negative) Urine Glucose (UA) Negative (Negative) Diagnostic Findings Abdomen/Pelvis CT 03/18/23 18:06 Exam(s): CT ABDOMEN + PELVIS With Contrast EXAM: CT Abdomen and Pelvis With Intravenous Contrast CLINICAL HISTORY: Reason for exam: lower abdominal pain. TECHNIQUE: Axial computed tomography images of the abdomen and pelvis with intravenous contrast. CTDI is 23.79 mGy and DLP is 1179.99 mGy-cm. Automated exposure control was utilized for the study. A dose lowering technique was utilized adhering to the principles of ALARA. CONTRAST: IV contrast COMPARISON: No relevant prior studies available. FINDINGS: Lung bases: Unremarkable. No mass. No consolidation. ABDOMEN: Liver: Unremarkable. No mass. Gallbladder and bile ducts: Unremarkable. No calcified stones. No ductal dilation. Pancreas: Unremarkable. No mass. No ductal dilation. Spleen: Unremarkable. No splenomegaly. Adrenals: Unremarkable. No mass. Kidneys and ureters: Unremarkable. No solid mass. No hydronephrosis. Stomach and bowel: Sigmoid diverticulitis there is a 1.9 x 1 cm area of hypodensity in the left lower abdomen adjacent to the above-mentioned inflammatory changes consistent with a small diverticular abscess. No obstruction. PELVIS: Appendix: No findings to suggest acute appendicitis. Bladder: Unremarkable. No mass. Reproductive: Unremarkable as visualized. ABDOMEN and PELVIS: Intraperitoneal space: Unremarkable. No free air. No significant fluid collection. Bones/joints: No acute fracture. No dislocation. Soft tissues: Unremarkable. Vasculature: Unremarkable. No abdominal aortic aneurysm. Lymph nodes: Unremarkable. No enlarged lymph nodes. IMPRESSION: Sigmoid diverticulitis with a 1.9 cm diverticular abscess. Electronically signed by: Aniket Bender MD 03/18/23 20:17 PM (1) Diverticulitis of intestine with abscess Diverticulitis bleeding: without bleeding Diverticulitis site: large intestine Qualified Code(s): K57.20 - Diverticulitis of large intestine with perforation and abscess without bleeding
[2023-03-19] MEDS ORDERED: busPIRone 5 MG TAB PO PRN (15:35)
[2023-03-19] MEDS ORDERED: MoRPHine SULFATE 4 MG/ML 1 ML CARP\\VIAL IV PRN (15:40)
[2023-03-19] MEDS: ACETAMINOPHEN 1,000 MG/100 ML VIAL IV SCH ×2 (16:24→23:13)
[2023-03-19] MEDS: CALCIUM CARBONATE 500 MG CHEWABLE TAB PO PRN (16:24)
[2023-03-19] MEDS ORDERED: MELATONIN 3 MG TAB PO PRN (22:38)
[2023-03-20] MEDS: PIPERACILLIN/TAZOBACTAM 4.5 GM in DEXTROSE 5% 100 ML IV SCH ×3 (02:12→17:47)
[2023-03-20] MEDS: CALCIUM CARBONATE 500 MG CHEWABLE TAB PO PRN ×2 (03:23→16:15)
[2023-03-20] MEDS: D5W AND NSS 1,000 ML IV SCH (05:35)
[2023-03-20 06:41] LABS: Hematocrit (blood only) 37.3 % (42.0-52.0); Hemoglobin 12.9 g/dl (14.0-18.0); Mean Corpuscular Hemoglobin 29.8 pg (25.0-34.0); Mean Corpuscular Hgb Conc 34.6 g/dL (32.0-36.0); Mean Corpuscular Volume 86.1 fL (80.0-100.0); Mean Platelet Volume 9.6 fL (9.4-12.4); Platelet Count 241 K/uL (130-400); RDW Coefficient of Variation 12.8 % (11.5-14.5); Red Blood Count 4.33 M/uL (4.70-6.10); White Blood Count 10.42 K/ul (4.8-10.8)
[2023-03-20 07:15] LABS: BUN Creatinine Ratio 9.6 (10-20); Calcium 8.6 mg/dl (8.6-10.3); Creatinine Clr Calc Pharmacy 203.2 ml/min; Est GFR (African American) 149.3 ml/min; Est GFR (Non-African American) 128.8 ml/min; Potassium 3.6 mmol/L (3.5-5.1)
[2023-03-20] MEDS: ACETAMINOPHEN 1,000 MG/100 ML VIAL IV SCH ×2 (07:21→15:57)
[2023-03-20] MEDS: NICOTINE 21 MG/24 HR TDSY TD SCH (09:18)
[2023-03-20] MEDS: GABAPENTIN 300 MG CAP PO SCH ×3 (09:18→21:13)
--- NOTE | 2023-03-20 13:11 | Surgery Progress Note ---
Date of Service March 20, 2023 Assessment & Plan (1) Diverticulitis of intestine with abscess: Plan: pt is a 43 year-old mal;e who was admitted to hospital for diverticulitis with small abscess, size 1.9cm, pt doing better, no abdominal pain, no feer, clear diet today, OOB repeat labs tomorrow, will F/U Admission and Anticipated Discharge Date Admission Date: March 18, 2023 Supervising Physician Co-Signing Physician Notes Patient seen and examined at bedside. Discussed with her provider. Reports improvement in the abdominal pain. No nausea or vomiting. Please will schedule IV Tylenol for pain control, morphine as needed. N.p.o. for now with ice chips. Subjective Patient seen and examined in 379-2 in follow-up for admission for diverticulitis. Still having left lower abdominal pain but is improved with medications since admission. Denies any fever, chills, nausea, vomiting, melena or hematochezia. No history of diverticulitis that he knows of. No fever, no headache, chest pain or shortness of breath, dysuria. 03/20/2023 1:07PM Dr. Quezada F/u diverticulitis with abscess 1.9cm. pt is doing better, no abdominal pain last 12 hours, no nausea, no vomiting, no fever, no diarrhea. WBC 10,000. Physical Exam Constitutional: WD/WN, vitals as above Neck: trachea midline, no thyromegaly Respiratory: normal respiratory effort, lungs clear to auscultation Cardiovascular: RRR, no murmur, no edema Gastrointestinal (Abdomen): soft, NT, Nd, BS +, Musculoskeletal: no cyanosis or clubbing, extremities motor strength 5/5 Neurologic: patellar DTR's 2+ bilat, sensation intact Psychiatric: A+Ox3, euthymic affect Results & Data Vital Signs (Past 12 Hours) Vital Signs Temp Pulse Resp BP Pulse Ox O2 Del Method 03/20/23 06:57 36.9 C 81 16 106/66 97 Room Air Laboratory Results Lab Results 03/18/23 03/18/23 03/18/23 Range/Units 18:43 18:43 21:00 WBC 16.59 H (4.8-10.8) K/ul RBC 4.89 (4.70-6.10) M/uL Hgb 14.8 (14.0-18.0) g/dl Hct 42.5 (42.0-52.0) % MCV 86.9 (80.0-100.0) fL MCH 30.3 (25.0-34.0) pg MCHC 34.8 (32.0-36.0) g/dL RDW Std Deviation 41.2 (36.4-46.3) fL RDW Coeff of Krystyna 13.1 (11.5-14.5) % Plt Count 255 (130-400) K/uL MPV 10.1 (9.4-12.4) fL Immature Gran % (Auto) 0.5 % Neut % (Auto) 81.0 % Lymph % (Auto) 9.9 % Barren % (Auto) 8.0 % Eos % (Auto) 0.3 % Baso % (Auto) 0.3 % Neut # (Auto) 13.43 H (1.40-6.50) K/uL Lymph # (Auto) 1.64 (1.2-3.4) K/uL Barren # (Auto) 1.33 H (0.11-0.59) K/uL Eos # (Auto) 0.05 (0-0.50) K/uL Baso # (Auto) 0.05 (0-0.2) K/uL Immature Gran # (Auto) 0.09 (0.01-0.20) K/uL Sodium 136 (136-145) mmol/L Potassium 4.1 (3.5-5.1) mmol/L Chloride 101 (98-107) mmol/L Carbon Dioxide 27 (21-32) mmol/L Anion Gap 8 (3-11) BUN 9 (6-23) mg/dl Creatinine 0.77 (0.6-1.4) mg/dl Est Cr Clr Drug Dosing 137.6 ml/min Est GFR ( Amer) 127.0 ml/min Est GFR (Non-Af Amer) 109.6 ml/min BUN/Creatinine Ratio 11.7 (10-20) Glucose 97 (70-99(Fasting)) mg/dl Calcium 8.6 (8.6-10.3) mg/dl Magnesium (1.7-2.4) mg/dl Total Bilirubin 0.5 (0.2-1.0) mg/dl AST 14 (13-39) U/L ALT 17 (7-52) U/L Alkaline Phosphatase 70 (34-104) U/L Total Protein 6.9 (6.0-8.3) gm/dl Albumin 3.8 (3.4-5.0) gm/dl Globulin 3.1 (2.5-4.0) gm/dl Albumin/Globulin Ratio 1.2 (0.9-2) Lipase 13 (11-82) U/L Urine Color Yellow Urine Appearance Clear (Clear) Urine pH 6.0 (4.5-7.5) Ur Specific [place] > 1.045 H (1.000-1.030) Urine Protein Trace H (Negative) Urine Glucose (UA) Negative (Negative) Urine Ketones 3+ H (Negative) Urine Blood Negative (Negative) Urine Nitrite Negative (Negative) Urine Bilirubin Negative (Negative) Urine Urobilinogen Negative (Negative) Ur Leukocyte Esterase Negative (Negative) Urine WBC (Auto) 0 (0-5) /hpf Urine RBC (Auto) 0-4 (0-4) /hpf U Hyaline Cast (Auto) 0 (0-5) /lpf U Epithel Cells (Auto) 5-10 H (0-5) /lpf Urine Bacteria (Auto) Negative (Negative) SARS-CoV-2, RNA, NAAT (NEGATIVE) 03/18/23 03/19/23 03/19/23 Range/Units Unknown 06:58 06:58 WBC 12.85 H (4.8-10.8) K/ul RBC 4.58 L (4.70-6.10) M/uL Hgb 13.4 L (14.0-18.0) g/dl Hct 40.1 L (42.0-52.0) % MCV 87.6 (80.0-100.0) fL MCH 29.3 (25.0-34.0) pg MCHC 33.4 (32.0-36.0) g/dL RDW Std Deviation 42.6 (36.4-46.3) fL RDW Coeff of Krystyna 13.2 (11.5-14.5) % Plt Count 237 (130-400) K/uL MPV 10.0 (9.4-12.4) fL Immature Gran % (Auto) 0.5 % Neut % (Auto) 74.8 % Lymph % (Auto) 15.0 % Barren % (Auto) 8.6 % Eos % (Auto) 0.9 % Baso % (Auto) 0.2 % Neut # (Auto) 9.62 H (1.40-6.50) K/uL Lymph # (Auto) 1.93 (1.2-3.4) K/uL Barren # (Auto) 1.10 H (0.11-0.59) K/uL Eos # (Auto) 0.11 (0-0.50) K/uL Baso # (Auto) 0.03 (0-0.2) K/uL Immature Gran # (Auto) 0.06 (0.01-0.20) K/uL Sodium 136 (136-145) mmol/L Potassium 3.6 (3.5-5.1) mmol/L Chloride 104 (98-107) mmol/L Carbon Dioxide 25 (21-32) mmol/L Anion Gap 7 (3-11) BUN 8 (6-23) mg/dl Creatinine 0.67 (0.6-1.4) mg/dl Est Cr Clr Drug Dosing 157.7 ml/min Est GFR ( Amer) 134.5 ml/min Est GFR (Non-Af Amer) 116.0 ml/min BUN/Creatinine Ratio 11.9 (10-20) Glucose 104 H (70-99(Fasting)) mg/dl Calcium 8.5 L (8.6-10.3) mg/dl Magnesium 2.0 (1.7-2.4) mg/dl Total Bilirubin (0.2-1.0) mg/dl AST (13-39) U/L ALT (7-52) U/L Alkaline Phosphatase (34-104) U/L Total Protein (6.0-8.3) gm/dl Albumin (3.4-5.0) gm/dl Globulin (2.5-4.0) gm/dl Albumin/Globulin Ratio (0.9-2) Lipase (11-82) U/L Urine Color Urine Appearance (Clear) Urine pH (4.5-7.5) Ur Specific [place] (1.000-1.030) Urine Protein (Negative) Urine Glucose (UA) (Negative) Urine Ketones (Negative) Urine Blood (Negative) Urine Nitrite (Negative) Urine Bilirubin (Negative) Urine Urobilinogen (Negative) Ur Leukocyte Esterase (Negative) Urine WBC (Auto) (0-5) /hpf Urine RBC (Auto) (0-4) /hpf U Hyaline Cast (Auto) (0-5) /lpf U Epithel Cells (Auto) (0-5) /lpf Urine Bacteria (Auto) (Negative) SARS-CoV-2, RNA, NAAT NEGATIVE (NEGATIVE) 03/20/23 03/20/23 Range/Units 06:17 06:17 WBC 10.42 (4.8-10.8) K/ul RBC 4.33 L (4.70-6.10) M/uL Hgb 12.9 L (14.0-18.0) g/dl Hct 37.3 L (42.0-52.0) % MCV 86.1 (80.0-100.0) fL MCH 29.8 (25.0-34.0) pg MCHC 34.6 (32.0-36.0) g/dL RDW Std Deviation 40.0 (36.4-46.3) fL RDW Coeff of Krystyna 12.8 (11.5-14.5) % Plt Count 241 (130-400) K/uL MPV 9.6 (9.4-12.4) fL Immature Gran % (Auto) % Neut % (Auto) % Lymph % (Auto) % [place] % (Auto) % Eos % (Auto) % Baso % (Auto) % Neut # (Auto) (1.40-6.50) K/uL Lymph # (Auto) (1.2-3.4) K/uL [place] # (Auto) (0.11-0.59) K/uL Eos # (Auto) (0-0.50) K/uL Baso # (Auto) (0-0.2) K/uL Immature Gran # (Auto) (0.01-0.20) K/uL Sodium 137 (136-145) mmol/L Potassium 3.6 (3.5-5.1) mmol/L Chloride 106 (98-107) mmol/L Carbon Dioxide 24 (21-32) mmol/L Anion Gap 7 (3-11) BUN 5 L (6-23) mg/dl Creatinine 0.52 L (0.6-1.4) mg/dl Est Cr Clr Drug Dosing 203.2 ml/min Est GFR ( Amer) 149.3 ml/min Est GFR (Non-Af Amer) 128.8 ml/min BUN/Creatinine Ratio 9.6 L (10-20) Glucose 109 H (70-99(Fasting)) mg/dl Calcium 8.6 (8.6-10.3) mg/dl Magnesium (1.7-2.4) mg/dl Total Bilirubin (0.2-1.0) mg/dl AST (13-39) U/L ALT (7-52) U/L Alkaline Phosphatase (34-104) U/L Total Protein (6.0-8.3) gm/dl Albumin (3.4-5.0) gm/dl Globulin (2.5-4.0) gm/dl Albumin/Globulin Ratio (0.9-2) Lipase (11-82) U/L Urine Color Urine Appearance (Clear) Urine pH (4.5-7.5) Ur Specific [place] (1.000-1.030) Urine Protein (Negative) Urine Glucose (UA) (Negative) Urine Ketones (Negative) Urine Blood (Negative) Urine Nitrite (Negative) Urine Bilirubin (Negative) Urine Urobilinogen (Negative) Ur Leukocyte Esterase (Negative) Urine WBC (Auto) (0-5) /hpf Urine RBC (Auto) (0-4) /hpf U Hyaline Cast (Auto) (0-5) /lpf U Epithel Cells (Auto) (0-5) /lpf Urine Bacteria (Auto) (Negative) SARS-CoV-2, RNA, NAAT (NEGATIVE) Diagnostic Findings Exam(s): CT ABDOMEN + PELVIS With Contrast EXAM: CT Abdomen and Pelvis With Intravenous Contrast CLINICAL HISTORY: Reason for exam: lower abdominal pain. TECHNIQUE: Axial computed tomography images of the abdomen and pelvis with intravenous contrast. CTDI is 23.79 mGy and DLP is 1179.99 mGy-cm. Automated exposure control was utilized for the study. A dose lowering technique was utilized adhering to the principles of ALARA. CONTRAST: IV contrast COMPARISON: No relevant prior studies available. FINDINGS: Lung bases: Unremarkable. No mass. No consolidation. ABDOMEN: Liver: Unremarkable. No mass. Gallbladder and bile ducts: Unremarkable. No calcified stones. No ductal dilation. Pancreas: Unremarkable. No mass. No ductal dilation. Spleen: Unremarkable. No splenomegaly. Adrenals: Unremarkable. No mass. Kidneys and ureters: Unremarkable. No solid mass. No hydronephrosis. Stomach and bowel: Sigmoid diverticulitis there is a 1.9 x 1 cm area of hypodensity in the left lower abdomen adjacent to the above-mentioned inflammatory changes consistent with a small diverticular abscess. No obstruction. PELVIS: Appendix: No findings to suggest acute appendicitis. Bladder: Unremarkable. No mass. Reproductive: Unremarkable as visualized. ABDOMEN and PELVIS: Intraperitoneal space: Unremarkable. No free air. No significant fluid collection. Bones/joints: No acute fracture. No dislocation. Soft tissues: Unremarkable. Vasculature: Unremarkable. No abdominal aortic aneurysm. Lymph nodes: Unremarkable. No enlarged lymph nodes. IMPRESSION: Sigmoid diverticulitis with a 1.9 cm diverticular abscess. (1) Diverticulitis of intestine with abscess Diverticulitis bleeding: without bleeding Diverticulitis site: large intestine Qualified Code(s): K57.20 - Diverticulitis of large intestine with perforation and abscess without bleeding
--- NOTE | 2023-03-20 14:49 | Hospitalist Progress Note ---
Date of Service March 20, 2023 Assessment & Plan (1) Diverticulitis of intestine with abscess: (2) History of alcohol use: (3) Anxiety: (4) Tobacco use: Plan This is a 43-year-old malewith past medical history significant of depression with anxiety, tobacco use disorder who presented with abdominal pain. Complicated acute diverticulitis with diverticular abscess Afebrile, hemodynamically stable CT abd/pelvis on admission reviewed; sigmoid diverticulitis with a 1.9 cm diverticular abscess Labs reviewed; leukocytosis improved. Discussed with surgery; recommended to continue iv fluids, iv antibiotics and advance to clear liquid diet. Pain control. zofran as needed for nausea/vomiting. Anxiety Buspar PRN Tobacco use disorder Smokes 1 ppd. Using nicotine patch. Cessation counseling History of alcohol use No longer drinking DVT Ppx: SCDs Code status: FULL PCP: DESIRAE Dubois Dispo: Admitted to med/surg Patient seen in collaboration with Dr. Arnold. Please see addendum. Please note the above document was generated using voice recognition software. It may contain grammatical, syntax or spelling errors. Any formal questions or concerns about the content, text or information contained within the body of this dictation should be directly addressed to the provider for clarification Admission and Anticipated Discharge Date Admission Date: March 18, 2023 Subjective Patient reports that abdominal pain has improved. No nausea or vomiting. Afebrile. Review of Systems Review of Systems: All systems reviewed & are unremarkable except as noted in Subjective Physical Exam Physical Exam: Gen: WD/WN, NAD, resting in bed, A&Ox3, cooperative HEENT: Normocephalic, atraumatic, conjunctivae moist, sclerae anicteric, mucous membranes moist Lung: Clear to Auscultation bilaterally, no wheezes/rales/rhonchi Heart: Regular rate, regular rhythm, no murmurs, rubs, or gallops Abdomen: Soft, NT, ND +BS x 4 Extremities: no edema Skin: Warm, no rash Results & Data Results & Data Vital Signs (Past 12 Hours) Vital Signs Temp Pulse Resp BP Pulse Ox O2 Del Method 03/20/23 06:57 36.9 C 81 16 106/66 97 Room Air Laboratory Results Laboratory Results WBC 10.42 K/ul (4.8-10.8) 03/20/23 06:17 RBC 4.33 M/uL (4.70-6.10) L 03/20/23 06:17 Hgb 12.9 g/dl (14.0-18.0) L 03/20/23 06:17 Hct 37.3 % (42.0-52.0) L 03/20/23 06:17 MCV 86.1 fL (80.0-100.0) 03/20/23 06:17 MCH 29.8 pg (25.0-34.0) 03/20/23 06:17 MCHC 34.6 g/dL (32.0-36.0) 03/20/23 06:17 RDW Std Deviation 40.0 fL (36.4-46.3) 03/20/23 06:17 RDW Coeff of Krystyna 12.8 % (11.5-14.5) 03/20/23 06:17 Plt Count 241 K/uL (130-400) 03/20/23 06:17 MPV 9.6 fL (9.4-12.4) 03/20/23 06:17 Immature Gran % (Auto) 0.5 % 03/19/23 06:58 Neut % (Auto) 74.8 % 03/19/23 06:58 Lymph % (Auto) 15.0 % 03/19/23 06:58 [place] % (Auto) 8.6 % 03/19/23 06:58 Eos % (Auto) 0.9 % 03/19/23 06:58 Baso % (Auto) 0.2 % 03/19/23 06:58 Neut # (Auto) 9.62 K/uL (1.40-6.50) H 03/19/23 06:58 Lymph # (Auto) 1.93 K/uL (1.2-3.4) 03/19/23 06:58 [place] # (Auto) 1.10 K/uL (0.11-0.59) H 03/19/23 06:58 Eos # (Auto) 0.11 K/uL (0-0.50) 03/19/23 06:58 Baso # (Auto) 0.03 K/uL (0-0.2) 03/19/23 06:58 Immature Gran # (Auto) 0.06 K/uL (0.01-0.20) 03/19/23 06:58 Sodium 137 mmol/L (136-145) 03/20/23 06:17 Potassium 3.6 mmol/L (3.5-5.1) 03/20/23 06:17 Chloride 106 mmol/L (98-107) 03/20/23 06:17 Carbon Dioxide 24 mmol/L (21-32) 03/20/23 06:17 Anion Gap 7 (3-11) 03/20/23 06:17 BUN 5 mg/dl (6-23) L 03/20/23 06:17 Creatinine 0.52 mg/dl (0.6-1.4) L 03/20/23 06:17 Est Cr Clr Drug Dosing 203.2 ml/min 03/20/23 06:17 Est GFR ( Amer) 149.3 ml/min 03/20/23 06:17 Est GFR (Non-Af Amer) 128.8 ml/min 03/20/23 06:17 BUN/Creatinine Ratio 9.6 (10-20) L 03/20/23 06:17 Glucose 109 mg/dl (70-99(Fasting)) H 03/20/23 06:17 Calcium 8.6 mg/dl (8.6-10.3) 03/20/23 06:17 Magnesium 2.0 mg/dl (1.7-2.4) 03/19/23 06:58 Total Bilirubin 0.5 mg/dl (0.2-1.0) 03/18/23 18:43 AST 14 U/L (13-39) 03/18/23 18:43 ALT 17 U/L (7-52) 03/18/23 18:43 Alkaline Phosphatase 70 U/L (34-104) 03/18/23 18:43 Total Protein 6.9 gm/dl (6.0-8.3) 03/18/23 18:43 Albumin 3.8 gm/dl (3.4-5.0) 03/18/23 18:43 Globulin 3.1 gm/dl (2.5-4.0) 03/18/23 18:43 Albumin/Globulin Ratio 1.2 (0.9-2) 03/18/23 18:43 Lipase 13 U/L (11-82) 03/18/23 18:43 Urine Color Yellow 03/18/23 21:00 Urine Appearance Clear (Clear) 03/18/23 21:00 Urine pH 6.0 (4.5-7.5) 03/18/23 21:00 Ur Specific [place] > 1.045 (1.000-1.030) H 03/18/23 21:00 Urine Protein Trace (Negative) H 03/18/23 21:00 Urine Glucose (UA) Negative (Negative) 03/18/23 21:00 Urine Ketones 3+ (Negative) H 03/18/23 21:00 Urine Blood Negative (Negative) 03/18/23 21:00 Urine Nitrite Negative (Negative) 03/18/23 21:00 Urine Bilirubin Negative (Negative) 03/18/23 21:00 Urine Urobilinogen Negative (Negative) 03/18/23 21:00 Ur Leukocyte Esterase Negative (Negative) 03/18/23 21:00 Urine WBC (Auto) 0 /hpf (0-5) 03/18/23 21:00 Urine RBC (Auto) 0-4 /hpf (0-4) 03/18/23 21:00 U Hyaline Cast (Auto) 0 /lpf (0-5) 03/18/23 21:00 U Epithel Cells (Auto) 5-10 /lpf (0-5) H 03/18/23 21:00 Urine Bacteria (Auto) Negative (Negative) 03/18/23 21:00 SARS-CoV-2, RNA, NAAT NEGATIVE (NEGATIVE) 03/18/23 Unknown Impressions Abdomen/Pelvis CT 03/18/23 18:06 Exam(s): CT ABDOMEN + PELVIS With Contrast EXAM: CT Abdomen and Pelvis With Intravenous Contrast CLINICAL HISTORY: Reason for exam: lower abdominal pain. TECHNIQUE: Axial computed tomography images of the abdomen and pelvis with intravenous contrast. CTDI is 23.79 mGy and DLP is 1179.99 mGy-cm. Automated exposure control was utilized for the study. A dose lowering technique was utilized adhering to the principles of ALARA. CONTRAST: IV contrast COMPARISON: No relevant prior studies available. FINDINGS: Lung bases: Unremarkable. No mass. No consolidation. ABDOMEN: Liver: Unremarkable. No mass. Gallbladder and bile ducts: Unremarkable. No calcified stones. No ductal dilation. Pancreas: Unremarkable. No mass. No ductal dilation. Spleen: Unremarkable. No splenomegaly. Adrenals: Unremarkable. No mass. Kidneys and ureters: Unremarkable. No solid mass. No hydronephrosis. Stomach and bowel: Sigmoid diverticulitis there is a 1.9 x 1 cm area of hypodensity in the left lower abdomen adjacent to the above-mentioned inflammatory changes consistent with a small diverticular abscess. No obstruction. PELVIS: Appendix: No findings to suggest acute appendicitis. Bladder: Unremarkable. No mass. Reproductive: Unremarkable as visualized. ABDOMEN and PELVIS: Intraperitoneal space: Unremarkable. No free air. No significant fluid collection. Bones/joints: No acute fracture. No dislocation. Soft tissues: Unremarkable. Vasculature: Unremarkable. No abdominal aortic aneurysm. Lymph nodes: Unremarkable. No enlarged lymph nodes. IMPRESSION: Sigmoid diverticulitis with a 1.9 cm diverticular abscess. Electronically signed by: Aniket Bender MD 03/18/23 20:17 PM (1) Diverticulitis of intestine with abscess Diverticulitis bleeding: without bleeding Diverticulitis site: large intestine Qualified Code(s): K57.20 - Diverticulitis of large intestine with perforation and abscess without bleeding
[2023-03-20] MEDS: ACETAMINOPHEN 325 MG TAB PO SCH (16:12)
[2023-03-21] MEDS: ACETAMINOPHEN 325 MG TAB PO SCH ×2 (00:13→08:49)
[2023-03-21] MEDS: CALCIUM CARBONATE 500 MG CHEWABLE TAB PO PRN (00:13)
[2023-03-21] MEDS: PIPERACILLIN/TAZOBACTAM 4.5 GM in DEXTROSE 5% 100 ML IV SCH ×2 (02:19→10:48)
[2023-03-21 06:28] LABS: Basophils # (auto) 0.05 K/uL (0-0.2); Basophils % (auto) 0.5 %; Eosinophils # (auto) 0.17 K/uL (0-0.50); Eosinophils % (auto) 1.6 %; Hematocrit (blood only) 40.4 % (42.0-52.0); Hemoglobin 13.6 g/dl (14.0-18.0); Immature Granulocytes # (auto) 0.05 K/uL (0.01-0.20); Immature Granulocytes % (auto) 0.5 %; Lymphocytes # (auto) 2.21 K/uL (1.2-3.4); Lymphocytes % (auto) 20.8 %; Mean Corpuscular Hgb Conc 33.7 g/dL (32.0-36.0); Mean Platelet Volume 9.7 fL (9.4-12.4); Monocytes # (auto) 0.88 K/uL (0.11-0.59); Monocytes % (auto) 8.3 %; Neutrophils # (auto) 7.24 K/uL (1.40-6.50); Neutrophils % (auto) 68.3 %; Platelet Count 305 K/uL (130-400); RDW Coefficient of Variation 12.9 % (11.5-14.5); RDW Standard Deviation 42.1 fL (36.4-46.3); Red Blood Count 4.54 M/uL (4.70-6.10)
[2023-03-21 07:09] LABS: Albumin Globulin Ratio 1.1 (0.9-2); Albumin Level 3.6 gm/dl (3.4-5.0); BUN Creatinine Ratio 6.8 (10-20); Bilirubin,Total 0.5 mg/dl (0.2-1.0); Calcium 9.3 mg/dl (8.6-10.3); Creatinine Clr Calc Pharmacy 142.8 ml/min; Est GFR (African American) 129.1 ml/min; Est GFR (Non-African American) 111.4 ml/min; Globulin 3.3 gm/dl (2.5-4.0); Potassium 4.4 mmol/L (3.5-5.1); Total Protein 6.9 gm/dl (6.0-8.3)
[2023-03-21] MEDS: NICOTINE 21 MG/24 HR TDSY TD SCH (08:49)
[2023-03-21] MEDS: GABAPENTIN 300 MG CAP PO SCH (08:49)
--- NOTE | 2023-03-21 10:30 | Surgery Progress Note ---
Date of Service March 21, 2023 Assessment & Plan (1) Diverticulitis of intestine with abscess: Plan: pt is a 43 year-old male who was admitted to hospital for diverticulitis with small abscess, size 1.9cm, pt doing better, no abdominal pain, no feer, clear diet today, OOB repeat labs tomorrow, will F/U 03/21/2023 10:[address] Damien Queen diverticulitis with small abscess, pt is doing fine, no abdominal pain, no fever, normal WBC, tolerated clear diet. pt can be discharged home today with Cipro + flagyl x 7 days. F/U me 2 weeks, Admission and Anticipated Discharge Date Admission Date: March 18, 2023 Supervising Physician Co-Signing Physician Notes Patient seen and examined at bedside. Discussed with her provider. Reports improvement in the abdominal pain. No nausea or vomiting. Please will schedule IV Tylenol for pain control, morphine as needed. N.p.o. for now with ice chips. Subjective Patient reports that abdominal pain has improved. No nausea or vomiting. Afebrile. 03/21/2023 10:[address] Quezada F/Wilmer diverticulitis with 1.9cm abscess pt is doing better, no abdominal pain, tolerated clear diet. no fever, normal WBC Physical Exam Constitutional: WD/WN, vitals as above Neck: trachea midline, no thyromegaly Respiratory: normal respiratory effort, lungs clear to auscultation Cardiovascular: RRR, no murmur, no edema Gastrointestinal (Abdomen): soft, NT, Nd, BS +, Musculoskeletal: no cyanosis or clubbing, extremities motor strength 5/5 Neurologic: patellar DTR's 2+ bilat, sensation intact Psychiatric: A+Ox3, euthymic affect Results & Data Vital Signs (Past 12 Hours) Vital Signs Temp Pulse Resp BP Pulse Ox O2 Del Method 03/21/23 07:30 Room Air 03/21/23 06:54 36.8 C 89 16 125/85 96 Room Air Laboratory Results Abnormal lab results 03/21/23 03/21/23 Range/Units 05:46 05:46 RBC 4.54 L (4.70-6.10) M/uL Hgb 13.6 L (14.0-18.0) g/dl Hct 40.4 L (42.0-52.0) % Neut # (Auto) 7.24 H (1.40-6.50) K/uL [place] # (Auto) 0.88 H (0.11-0.59) K/uL BUN 5 L (6-23) mg/dl BUN/Creatinine Ratio 6.8 L (10-20) (1) Diverticulitis of intestine with abscess Diverticulitis bleeding: without bleeding Diverticulitis site: large intestine Qualified Code(s): K57.20 - Diverticulitis of large intestine with perforation and abscess without bleeding
--- NOTE | 2023-03-21 16:41 | Discharge Summary ---
Date of Service March 21, 2023 Admission HPI Per Admitting Provider This is a 43-year-old male past medical history significant for genital warts, history of depression with anxiety, tobacco use disorder. Currently, he states he is only taking gabapentin and once in a while takes buspirone and he is also smoking 1 pack a day. Comes because of abdominal pain since Wednesday, left lower quadrant abdominal pain, associated with some sickness in the stomach. Denies any nausea or vomiting. Denies any fever. Normal bowel and bladder movements. Denies any chest pain. Has smoker's cough. He gets short of breath on exertion. Denies any headache. No blurred visions, no earache, no runny nose, no sore throat. Currently, resting comfortably and hemodynamically stable. Admission Exam Per Admitting Provider GENERAL: The patient is of moderate build, not in acute distress. VITAL SIGNS: Temperature 36.8, pulse 96, respiratory rate 18, blood pressure 129/81, oxygen 96% on room air. HEENT: Pupils equal, round and reactive to light. Oral mucosa moist. NECK: No JVD, no neck masses. CARDIOVASCULAR: S1 and S2 heard. Regular rate and rhythm. No murmur, no gallop. RESPIRATORY SYSTEM: Normal AP diameter. No accessory muscle use. No wheezing or crackles. ABDOMEN: Soft, bowel sounds present. Tenderness in left lower quadrant with guarding, no distention. CENTRAL NERVOUS SYSTEM: Cranial nerves II-XII grossly intact, nonfocal. EXTREMITIES: No edema, no erythema. Principal Diagnosis Complicated acute diverticulitis with diverticular abscess Discharge Exam Gen: WD/WN, NAD, resting in bed, A&Ox3, cooperative HEENT: Normocephalic, atraumatic, conjunctivae moist, sclerae anicteric, mucous membranes moist Lung: Clear to Auscultation bilaterally, no wheezes/rales/rhonchi Heart: Regular rate, regular rhythm, no murmurs, rubs, or gallops Abdomen: Soft, NT, ND +BS x 4 Extremities: no edema Skin: Warm, no rash Discharge Data Allergies Allergy/AdvReac Type Severity Reaction Status Date / Time No Known Allergies Allergy Unknown NONE Verified 03/18/23 22:05 Consultations 03/18/23 21:07 Consult General Surgery Stat 03/18/23 22:04 ED Decision to Admit Stat Ordered Studies 03/18/23 18:06 CT abd pelvis IV con only Stat Hospital Course (1) Diverticulitis of intestine with abscess: (2) History of alcohol use: (3) Anxiety: (4) Tobacco use: Plan This is a 43-year-old malewith past medical history significant of depression with anxiety, tobacco use disorder who presented with abdominal pain. CT abdomen and pelvis done on admission showed sigmoid diverticulitis with a 1.9 cm diverticular abscess Patient was admitted to [facility]. Surgery was consulted. Patient was treated with conservative care with IV fluids, IV Zosyn and pain control. Patient's abdominal pain resolved. Diet was advanced slowly and patient was able to tolerate diet without any difficulty. Patient was discharged home on 7 more days of ciprofloxacin and metronidazole on recommendation of surgery. Patient to follow-up with his PCP. Will need outpatient colonoscopy in 6 to 8 weeks. Please note the above document was generated using voice recognition software. It may contain grammatical, syntax or spelling errors. Any formal questions or concerns about the content, text or information contained within the body of this dictation should be directly addressed to the provider for clarification Total Time Total Time Spent Total Time Spent (In Minutes): 45 Total Time Includes: Examination of the Patient, Discharge Planning, Medication Reconciliation, Communication With Other Providers and Other Discharge Plan Discharge Items Patient Disposition: Home - Self-Care Reason For Visit: ABDOMINAL PAIN Discharge Diagnosis: Acute diverticulitis with abscess Activity: Resume your previous activity Non-emergency contact: Primary Care Provider Call non-emergency contact if: you have any medication questions and your symptoms worsen Follow-up/Referrals: Roberto Dyson, [Surgeon] - Kojo Dubois PA-C [Primary Care Provider] - (Date & Time 03/26/2023 7:00 AM Provider Kojo Dubois PA-C Department General [facility] ) Diet: Full liquid Addtl Attending Provider Instructions: You were admitted to the hospital with acute diverticulitis and abscess. You are prescribed antiboitics (Cipro and Flagyl) to be taken for 7 days more. Please follow-up with your primary care doctor. You will need colonoscopy in 6 to 8 weeks. Addtl Change Director Provider Instructions: * Please do full liquid diet for 1 more day.This gives your bowel a chance to rest so that it can recover. * After a day, you can start solid food. Foods to include: flake cereal, mashed potatoes, pancakes, waffles, pasta, white bread, rice, applesauce, bananas, eggs, meat, fish, poultry, tofu, cooked vegetables * Take your medicationsas directed. doses or stop taking the medications, even if you feel better. * Monitor your temperature and report any rising temperature to your doctor. * Take antibiotics exactly as directed. Do not miss any * Drink 6 to 8 glasses of water every day, unless directed otherwise. * Use a heating pad or hot water bottle to reduce abdominal cramping or pain. Pending Studies at Discharge: No Stand-Alone Forms: My [facility], Smoking Cessation Medications and DC Order Prescriptions: New ciprofloxacin HCl 500 mg tablet 500 mg PO BID 7 Days Qty: 14 0RF metronidazole 500 mg tablet 500 mg PO Q8H 7 Days Qty: 21 0RF Continued buspirone 5 mg tablet 5 - 10 mg PO DAILY PRN (Reason: Anxiety) gabapentin 300 mg capsule 300 mg PO TID ibuprofen [Advil] 200 mg Tablet 800 mg PO DAILY PRN (Reason: Pain) calcium carbonate 500 mg calcium (1,250 mg) Tablet,Chewable 500 mg PO TID PRN (Reason: Gi Upset) Changed acetaminophen [Tylenol] 325 mg Tablet 650 mg PO TID PRN (Reason: Pain) Qty: 30 0RF Discharge Orders: Discharge Order (Routine); Ordered 03/21/23 Ordered By: Sven Valdez/Other Patient Handouts: Preventing Deep Vein Thrombosis Admission Data Admit Date/Time: 03/18/23 22:42 Attending Provider: Sven Arnold Admit Provider: Nigel Aragon Primary Care Provider: Kojo Dubois Other Providers: Roberto Dyson ; Nigel Aragon ; Brittani Trejo Other Interventions: Discharge Summary Assessment (RN) Last Done: 03/21/23 10:44
== END 2023-03-21 11:16 | disposition home or self-care (01) | DRG 392 ==
LOC: ED 17:43 → 3N 22:42